=== PATIENT | male | born 1955 | race Two or more races ===

== ENCOUNTER 2018-07-23 08:06 | Day surgery (SDC) | payer MEDICARE, OTHER ==
[~2018-07-23] VITALS: Ht 182.9 cm; Wt 95.3 kg
[~2018-07-23 08:06] MED LIST: IBUP-1542 PO; [UNRECOGNIZED DRUG - REMARK]
[2018-07-23] MEDS ORDERED: PROSTATE MED (09:13)
[2018-07-23] MEDS ORDERED: baby aspirin (09:13)
[2018-07-23] MEDS ORDERED: DIABETES MED (09:37)
[2018-07-23 09:47] VITALS: Ht 182.9 cm; Wt 95.3 kg
[2018-07-23] MEDS ORDERED: INSULIN REGULAR, HUMAN 100 UNIT/1 ML 3ML VIAL IVP STA (10:04)
--- NOTE | 2018-07-23 10:07 | PREAC ---
Date/Time of Note Date/Time of Note DATE: 07/23/18 TIME: 10:06 Anesthesia Eval and Record Evaluation Time Pre-Procedure Interview DATE: 07/23/18 TIME: 10:06 Age 63 Sex male NPO: 8 hrs Preoperative diagnosis hx of colon polyp Planned procedure colonoscopy Past Medical History Past Medical History: Includes Endo: Diabetes Surgery & Anesthesia Issues No known issue Meds Anticoagulation: No Beta Corazon within 24 hr: No Reason Beta Corazon not given: Pt. not on B-Corazon Reported Medications [Diabetes Med] No Conflict Check 07/23/18 [Prostate Med] No Conflict Check 07/23/18 [baby aspirin] No Conflict Check 07/23/18 Discontinued Reported Medications [No At Home Meds] No Conflict Check 07/18/11 Discontinued Scripts Ibuprofen* (Motrin*) 600 Mg Tab, 600 MG PO Q6, #30 TAB Prov:RADHA MONTIEL Rachael 02/27/16 Meds reviewed: Yes Allergies Coded Allergies: No Known Drug Allergies (Verified Allergy, Unknown, 07/23/18) Allergies Reviewed: Yes Labs/Studies Labs Reviewed: Reviewed by anesthesiologist test: N/A Studies: ECG (n/a), CXR (n/a) Pre-procedure Exam Airway: Adequate mouth opening Mallampati: Mallampati I Teeth: Normal Lung: Normal Heart: Normal ASA Physical Status ASA physical status: 2 Emergency: None Planned Anesthetic General/MAC: MAC Planned Pain Management Parenteral pain med Pre-operative Attestations Prior to commencing anesthesia and surgery, the patient was re-evaluated, there was verification of: *The patient's identity *The results of appropriate recent lab work and preoperative vital signs *The above evaluation not changing prior to induction *Anesthetic plan, risk benefits, alternative and complications discussed with patient/family; questions answered; patient/family understands, accepts and wishes to proceed. AWILDA JOE MD Jul 23, 2018 10:07
[2018-07-23] MEDS ORDERED: FENTAnyl 50 MCG/ML VIAL ONE (10:10)
[2018-07-23] MEDS ORDERED: PROPOFOL 20 ML ONE ×2 (10:10→11:03)
[2018-07-23 10:13] VITALS: BP 162/87; PULSE 98; RESP 20
[2018-07-23] MEDS ORDERED: ONDANSETRON 4 MG INJ IV PRN (10:30)
--- NOTE | 2018-07-23 11:02 | PAC ---
Date/Time of Note Date/Time of Note DATE: 07/23/18 TIME: 11:02 Post-Anesthesia Notes Post-Anesthesia Note Last documented vital signs Vital Signs Date Temp Pulse Resp B/P (MAP) Pulse Ox O2 O2 Flow FiO2 Time Delivery Rate 07/23/18 98.8 98 20 162/87 98 Room Air 10:13 (112) Activity: WNL Respiratory function: WNL Cardiovascular function: WNL Mental status: Baseline Pain reasonably controlled: Yes Hydration appropriate: Yes Nausea/Vomiting absent: No AWILDA JOE MD Jul 23, 2018 11:02
[2018-07-23 11:14] VITALS: BP 126/65; PULSE 87; RESP 20
== END 2018-07-23 11:28 | disposition home or self-care (01) ==
LOC: GIL 08:06
PROVIDERS: ATTEND Internal Medicine Gastroenterology
DX: R19.4 Change in bowel habit (principal); D12.3 Benign neoplasm of transverse colon; K64.8 Other hemorrhoids; E11.9 Type 2 diabetes mellitus without complications
CPT/HCPCS: 45380; 82962; J1815; J3010; 88305